=== PATIENT | female | born 1950 | race Caucasian/White ===

== ENCOUNTER 2018-08-08 23:15 | Emergency (ER) | payer OTHER, MEDICARE ==
[~2018-08-08] VITALS: Ht 175.3 cm; Wt 120.5 kg
[2018-08-08 23:19] VITALS: BP 147/83
--- NOTE | 2018-08-08 23:27 | NUR ---
PT UNABLE TO DO VA'S
--- NOTE | 2018-08-08 23:47 | NUR ---
Patient/Caregiver given discharge instructions and they have confirmed that they understand the instructions. Patient ambulatory with steady gait.
[2018-08-09] MEDS ORDERED: PROPARACAINE OPHTH 0.5%, 15ML LEFTEYE ONE
== END 2018-08-08 23:50 | disposition home or self-care (01) ==
LOC: ED 23:42
DX: T15.12XA Foreign body in conjunctival sac, left eye, initial encounter (principal); X58.XXXA Exposure to other specified factors, initial encounter; Y93.89 Activity, other specified; Y92.89 Other specified places as the place of occurrence of the external cause; Y99.8 Other external cause status
CPT/HCPCS: 65205; 65220; 99284